=== PATIENT | male | born 1975 | race Two or more races ===

== ENCOUNTER → 2019-12-16 | Outpatient (CLI) | payer MEDICAID | END | disposition home or self-care (01) | LOC: CVU 07:00 | PROVIDERS: ATTEND Internal Medicine Cardiovascular Disease | DX: I08.8 Other rheumatic multiple valve diseases (principal); Z87.891 Personal history of nicotine dependence | CPT/HCPCS: 93306; 93356 ==

== ENCOUNTER 2020-10-13 11:53 | Emergency (ER) | payer MEDICAID ==
[~2020-10-13] VITALS: Ht 172.7 cm; Wt 99.2 kg
[2020-10-13 13:16] LABS: MICROSCOPIC AUTO
[2020-10-13 13:31] LABS: MEAN CORPUSCULAR HGB CONC 34.3 g/dL (33.2-36.2); MEAN PLATELET VOLUME 8.5 fL (7.4-10.4); PLATELET COUNT 185 x10^3/uL (130-400); RED BLOOD COUNT 5.29 x10^6/uL (4.38-5.82); RED CELL DISTRIBUTION WIDTH 13.2 % (9.4-14.8)
[2020-10-13 13:36] LABS: ALBUMIN 3.5 g/dL (3.4-5.0); ANION GAP 3 mmol/L (5-15); CALCIUM 9.5 mg/dL (8.5-10.1); CHLORIDE 104 mmol/L (98-107)
[2020-10-13 13:40] LABS: ALANINE AMINOTRANSFERASE 47 U/L (12-78); ALKALINE PHOSPHATASE 81 U/L (45-117); BILIRUBIN,TOTAL 0.6 mg/dL (0.2-1.0); CREATININE 1.22 mg/dL (0.7-1.3); TOTAL PROTEIN 7.6 g/dL (6.4-8.2)
[2020-10-13 14:12] LABS: <RBC MORPHOLOGY> NORMAL; BAND#(MANUAL) 2.55 x10^3/uL; BANDS%(MANUAL) 14 % (0-7); EOS#(MANUAL) 0.18 x10^3/uL (0.0-0.4); EOS% (MANUAL) 1 % (1-7); LYMPH#(MANUAL) 0.91 x10^3/uL (1-3.4); LYMPHS% (MANUAL) 5 % (22-44); MONOS#(MANUAL) 0.55 x10^3/uL (0.3-2.7); MONOS% (MANUAL) 3 % (2-9); SEG#(MANUAL) 14.01 x10^3/uL (1.8-6.8); SEGS% (MANUAL) 77 % (42-75)
[2020-10-13 14:13] LABS: <PLATELET ESTIMATE> ADEQUATE; <PLT MORPHOLOGY> NORMAL PLT MORPH
--- NOTE | 2020-10-13 16:32 | NUR ---
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
--- NOTE | 2020-10-13 16:55 | NUR ---
FIRST CONTACT: PT TO ROOM WITH STEADY GAIT. ATTACHED TO MONITORS. AND POSTIONED TO COMFORT. VSS. NADN. DR. SANTOS TO BEDSIDE FOR EVALUATION.
[2020-10-13] MEDS ORDERED: KETOROLAC 30 MG/1 ML ONE (16:58)
[2020-10-13] MEDS ORDERED: KETOROLAC 15 MG/1ML IVPush ONE (17:00)
[2020-10-13] MEDS ORDERED: OMNIPAQUE 350 MG/ML, 100ML BOTTLE ONE (17:48)
--- NOTE | 2020-10-13 19:01 | NUR ---
received report from carina sim. transfer of care.
[2020-10-13 19:06] VITALS: BP 131/83
--- NOTE | 2020-10-13 19:24 | NUR ---
Patient/Caregiver given discharge instructions and they have confirmed that they understand the instructions. Patient ambulatory with steady gait. NAD, all questions answered appropriately, denies additional needs at this time. No personal belongings left in room after discharge.
== END 2020-10-13 19:26 | disposition home or self-care (01) ==
LOC: ED 12:00
DX: B34.9 Viral infection, unspecified (principal); Z20.822 Contact with and (suspected) exposure to COVID-19; R10.9 Unspecified abdominal pain; R11.0 Nausea
CPT/HCPCS: 36415; 74177; 80053; 81001; 85025; 86850; 86900; 87086; 96374; 99285; J1885; Q9967; U0003; U0005